=== PATIENT | male | born 1955 ===

== ENCOUNTER 2017-01-23 09:58 | Inpatient (IN) ==
[~2017-01-23 09:58] MED LIST: HEPARIN 5,000 UNIT/1 ML VIAL IV ONE; LIDOCAINE 1% 20 ML VIAL MISC INJ ONE; MEPERIDINE 25 MG/1 ML VIAL IV ONE; MIDAZOLAM 2 MG/2 ML VIAL IV ONE
--- NOTE | 2017-01-23 10:25 | Cardiology History & Physical ---
Assessment and Plan - Time spent with patient Time spent with patient: Greater than 30 minutes (1) Chest pain in adult Status: Acute Assessment and plan: With the patient having anterior chest pain suggestive of an MD, IVCD making it nondiagnostic for STEMI, and his known coronary disease, we must presume that he is having a STEMI and needs an emergent heart cath. The risk and benefits were discussed with the patient. He agrees to proceed. Left heart cath and possible PTCA or stent were discussed with the patient. The risk of the procedure include but are not limited to a small risk of injury to the vessel, abnormal heart rhythm, stroke, heart attack, need for emergent surgery, contrast reaction, restenosis, or . The patient voices understanding, agrees with the plan, and desires to proceed with the heart catheterization. I discussed with the patient the benefits of stopping tobacco/nicotine, the problems with continuing to use it, and options of treatment. The patient is considering this option. Check lipid profile post cath and treat per guidelines--try to use a statin We will keep him on low-dose beta-carrie at all possible Current Visit: Yes (2) IVCD (intraventricular conduction defect) Status: Acute Current Visit: Yes (3) Smoker Status: Acute Current Visit: Yes (4) Alcohol use Status: Acute Current Visit: Yes History of Present Illness Chief complaint: "I felt like something was sitting on my chest" History of present illness: Mr. Kendrick is a 61 year old male PCP:? [employer] Officer: Dr. Yfn Arnold In about 2009 patient presented with chest pain and had a ischemic EKG changes, so there was no IVCD or bundle-branch block at that time. He underwent heart cath and stenting by Dr. Arnold. He had a stent of his ostium of the right coronary artery in his mid right stent, then did fairly well. He does remain on aspirin and Plavix but no other medications. This morning, is eating some breakfast. He ate some hashbrowns and onion. He began having some nausea. With the nausea, then began to feel like "something was sitting on my chest". An EKG was obtained. It showed left bundle branch block. This presumably is new. He was sent to [facility] to evaluate for the possibility of an acute MD. He was brought to the catheterization lab directly. No orthopnea, PND, edema, palpitations, syncope, cough, wheezing, or phlegm. No bleeding in the pt's bowels, urine, or coughing up blood. No planned surgery for the next year. No contraindication to anticoagulation for a year. Home Medications Medication Instructions Recorded Confirmed Type Aspirin [Aspirin EC] 81 mg PO DAILY 01/23/17 01/23/17 History Allergies Allergy/AdvReac Type Severity Reaction Status Date / Time No Known Allergies Allergy Unverified 01/23/17 10:09 12 point system: reviewed and no additional remarkable complaints except as stated (A 12 point review of systems is negative except for as mentioned in HPI. ) Medical,Surgical,& Family Hx - Family History Family History: Reports;: Family Heart Disease - Social History Smoking Status: Current every day smoker Frequency of Alcohol Use: Frequently (Per the family, he drinks about 1/5 of liquor or slightly more per weekend. Most all of this is consumed in the weekend.) Type of Drug Use: None Functional capacity: independent ambulation Cardiology Physical Exam - Constitutional Exam: HEENT: Pupils equal, reactive to light and accommodation Neck: NoJVD or bruit Lungs clear to auscultation Heart: Regular rhythm rate with normal S1 and S2. Apical S4 Abdomen: No hepatosplenomegaly Spine/extremities: No clubbing, cyanosis, or edema Neuro: Nonfocal Psych: No depression or anxiety Bilateral femoral pulses were 4+. Foot pulses were 2-3+. Result/EKG - Labs CBC & BMP: 01/23/17 12:03 01/23/17 12:03 - EKG EKG results: interpreted by me
--- NOTE | 2017-01-23 10:26 | History and Physical Update ---
Sedation H&P Update - History and Physical H&P was reviewed, the patient examined and there: are no changes in the patients condition since last H&P was completed. - Dictation Physical: refer to H&P completed by admitting physician - Physical Exam Mental Status: alert and oriented Heart: regular rate and rhythm Lung: clear to auscultation Abdomen: within normal limits Vitals: within normal limits - Sedation Plan for Sedation: minimal Patient Consent: Procedure disscussed with patient and patinet has consented., Risks and benefits were discussed with patient,including infection,, bleeding, injury to surrounding structures, seizure, temporary nerve, Patient understands and accepts potential risks/benefits and agrees to, proceed. ASA Class: IV Airway Assessment: Class II: Soft palate, uvula, fauces visible
--- NOTE | 2017-01-23 10:28 | Operative Note ---
Date of procedure: 01/23/17 Procedure Preformed: Left heart cath--emergently, chest pain consistent with an PR and left bundle branch block which is thought to be new Coronary angiography Left ventriculography Attempted crossing of the occluded right coronary artery to do PTCA/stent- unsuccessful-thought to be a chronic total occlusion Angiogram of the right femoral artery Angio-Seal of the right femoral artery-successful Surgeon / Physician: Case Bustillo News Copy Editor: Payton Sauceda Post-op diagnosis: same (Anterior chest pain, "like something is sitting on my chest" associated with nausea in the setting of someone who has known coronary disease, prior coronary stenting of the right coronary artery, and has left bundle branch block which is assumed to be new [no prior EKG is available, when he came in 2009 he had EKG changes suggestive of ischemia, which would suggest he did not have left bundle branch block pattern at that time]) Findings: Impression: Totally occluded ostium of the right coronary-angiographically it appears it is occluded ostially and in the midportion-with BRIAN grade III collaterals, suggesting this is an old occlusion-- Mild luminal irregularities in the left coronary artery-no significant disease in the left system Mild global left systolic dysfunction, LVEF 45-55% Mild elevation of LVEDP, 16 mmHg Attempted crossing of the total occlusion of the right coronary artery-in case he was a acute total nipqhjvbj-rspavyqqjiaj-Q believe this is an old total occlusion Angiogram right femoral artery Angio-Seal right femoral artery-successful Plan/recommendations: The patient will have risk factors optimized. The patient will be on antiplatelet medications to include aspirin indefinitely and Plavix . my suspicion is this is is this is not a STEMI or even a non-STEMI. It is my assessment that the nausea and then anterior chest pressure which occurred after eating his hashbrowns was in fact not an acute PR but may have been GI related. We will see with enzymes show. Even if it is his acute occlusion of the right coronary artery it could not be crossed. We treated medically. Meanwhile, he does still smoke. I discussed with about stopping smoking. I will make sure he is on good medication for his coronary disease. There is also question of him drinking 1/5 or more of liquor per weekend which I will advise him on no more than 2 drinks in 24 hours. Follow-up will be scheduled. Addenda: I saw the patient post-cath. the groin puncture site and distal pulse are stable. vital signs are stable and the patient will be observed closely overnight. Specimens: none sent Estimated blood loss: minimal Condition: stable Anesthesia: local, conscious sedation Disposition: floor
[2017-01-23] MEDS ORDERED: MAGNESIUM SULF RIDER 4 GM in PREMIX 1 EACH IV PRN (10:38)
[2017-01-23] MEDS ORDERED: MAGNESIUM SULF RIDER 2 GM in PREMIX 1 EACH IV PRN (10:38)
[2017-01-23] MEDS ORDERED: ACETAMINOPHEN 325 MG TABLET PO PRN (10:38)
--- NOTE | 2017-01-23 10:38 | Cardiology Operative Report ---
Date of Procedure:: 01/23/17 Post-op diagnosis: same (Anterior chest pain, "like something is sitting on my chest" associated with nausea in the setting of someone who has known coronary disease, prior coronary stenting of the right coronary artery, and has left bundle branch block which is assumed to be new [no prior EKG is available, when he came in 2009 he had EKG changes suggestive of ischemia, which would suggest he did not have left bundle branch block pattern at that time]) Procedure: Surgeon / Physician: Case Bustillo Starter Cup Powder Mixer: Payton Sauceda Post-op diagnosis: same (Anterior chest pain, "like something is sitting on my chest" associated with nausea in the setting of someone who has known coronary disease, prior coronary stenting of the right coronary artery, and has left bundle branch block which is assumed to be new [no prior EKG is available, when he came in 2009 he had EKG changes suggestive of ischemia, which would suggest he did not have left bundle branch block pattern at that time]) procedure: The patient was prepped and draped in usual manner. Entered the right femoral artery via the Seldinger technique. I used a sheath and then used a JL4 and engaged left coronary. Multiple views were taken. I then exchanged for a JR4. Multiple views of the right coronary were taken. I then exchanged for an angled pigtail. I crossed the valve. Left ventricular end-diastolic pressures measured. Left ventriculography was done. Left ventricle pullback was done. The catheters were then removed from the patient. Please see the cath data sheets for the details of catheters used. Complications: None Hemodynamic data: LVEDP was 16 mmHg. Angiographic data: The left main coronary was large and had minimal luminal irregularities. The left anterior descending artery was large and had minimal luminal irregularities. The left circumflex system was moderate to large and had minimal luminal irregularities The right coronary artery was large in size, dominant vessel with the PDA. There is clearly occluded ostium. There were BRIAN grade III collaterals from the left coronary to the distal right coronary. He would only feel back to the midportion of vessel, suggesting this length of occlusion was several centimeters. It has appearance of an old occlusion. ASENCIO left ventriculography revealed normal global/regional left ventricular systolic function. Overall ejection fraction was at least 45-55%. There is no significant mitral regurgitation. Angiogram of the right femoral artery revealed the puncture site to be in a large vessel, above the bifurcation. It was suitable for Angio-Seal. Impression: Totally occluded ostium of the right coronary-angiographically it appears it is occluded ostially and in the midportion-with BRIAN grade III collaterals, suggesting this is an old occlusion-- Mild luminal irregularities in the left coronary artery-no significant disease in the left system Mild global left systolic dysfunction, LVEF 45-55% Mild elevation of LVEDP, 16 mmHg Attempted crossing of the total occlusion of the right coronary artery-in case he was a acute total tfxpbdver-ldgjmeqlufgn-N believe this is an old total occlusion Angiogram right femoral artery Angio-Seal right femoral artery-successful Plan/recommendations: The patient will have risk factors optimized. The patient will be on antiplatelet medications to include aspirin indefinitely and Plavix . my suspicion is this is is this is not a STEMI or even a non-STEMI. It is my assessment that the nausea and then anterior chest pressure which occurred after eating his hashbrowns was in fact not an acute WA but may have been GI related. We will see with enzymes show. Even if it is his acute occlusion of the right coronary artery it could not be crossed. We treated medically. Meanwhile, he does still smoke. I discussed with about stopping smoking. I will make sure he is on good medication for his coronary disease. There is also question of him drinking 1/5 or more of liquor per weekend which I will advise him on no more than 2 drinks in 24 hours. Follow-up will be scheduled. Addenda: I saw the patient post-cath. the groin puncture site and distal pulse are stable. vital signs are stable and the patient will be observed closely overnight. Specimens: none sent Estimated blood loss: minimal Condition: stable Anesthesia: local, conscious sedation Disposition: floor Additional CC's: Aydin Arnold Anesthesia: local, minimal conscious sedation Surgeon / Physician: Case Bustillo Starter Cup Powder Mixer: other Estimated blood loss: minimal Specimens: none sent Condition: stable Disposition: floor
[2017-01-23] MEDS ORDERED: DEXTROSE 5% NACL 0.9% 1,000 ML IV SCH (11:00)
[2017-01-23] MEDS ORDERED: CARVEDILOL 3.125 MG TABLET PO SCH (11:00)
[2017-01-23] MEDS ORDERED: ONDANSETRON 4 MG/2 ML VIAL IV PRN (11:31)
[2017-01-23 12:15] LABS: Basophils % 0.3 % (0.0-0.8); Eosinophils % 0.1 % (0.00-10.9); Hematocrit 44.6 VOL% (42.0-52.0); Hemoglobin 14.6 GM/DL (14.0-18.0); Immature Granulocytes % 0.4 %; Immature Granulocytes Absolute 0.05 #; Lymphocytes # 1.3 10*3/uL (1.4-4.0); Lymphocytes % 9.1 % (21.2-54.2); Mean Corpuscular HGB Conc 32.7 GM/DL (32-36); Mean Corpuscular Hemoglobin 29 PG (27-34); Mean Corpuscular Volume 88.8 FL (87-102); Mean Platelet Volume 10.5 FL (9.6-12.0); Monocytes # 0.6 10*3/uL (0.11-0.8); Neutrophils % 86.1 % (38.7-73.9); Platelet Count 189 T/CUMM (130-400); Red Blood Count 5.02 MC/CUMM (3.8-5.5); Red Cell Distribution Width 14.6 % (9.3-17.3); White Blood Count 13.9 T/CUMM (4-12)
[2017-01-23] MEDS: ASPIRIN CHEW 81 MG TABLET PO SCH (12:37)
--- NOTE | 2017-01-23 12:41 | EKG Report ---
Stationary ECG Study [facility] Test Date: 01/23/2017 8:03:08 AM Pat Name: ANDREA HOUGH Department: Room: 280 Gender: M Overnight Houseperson: : 1955 Requested by: Case Del Castillo Order Number: [id number] Reading MD: CASE DEL CASTILLO Intervals [place] Rate: 61 P: 76 SC: 163 QRS: 50 QRSD: 154 T: 259 QT: 461 QTc: 464 Interpretive Statements SINUS RHYTHM WITH SINUS ARRHYTHMIA INTRAVENTRICULAR CONDUCTION DELAY INTERPRETATION BASED ON A DEFAULT AGE OF 40 YEARS HEART ALERT DONE AT [facility]. CORRECT TIME 09:03, BROUGHT TO [facility] Electronically Signed On 01-24-17 14:56:55 CDT by CASE DEL CASTILLO [email or web address]
[2017-01-23 12:53] LABS: Albumin 3.7 G/DL (3.4-5.0); Bilirubin,Total 1.1 MG/DL (0.2-1.0); Osmolality,Calculated 276.7 MOS/KG (273-304); Potassium 4.3 MMOL/L (3.5-5.1); Risk Ratio 3.61; Total Protein 6.7 G/DL (6.4-8.3)
[2017-01-23 13:08] LABS: Troponin I Only 0.036 NG/ML (0.00-0.045)
--- NOTE | 2017-01-23 14:11 | EKG Report ---
Stationary ECG Study [facility] Test Date: 01/23/2017 2:11:28 PM Pat Name: ANDREA HOUGH Department: Room: 280 Gender: M Substation Operator Conversion: SYLVIA : 1955 Requested by: Case Del Castillo Order Number: [id number] Reading MD: CASE DEL CASTILLO Intervals [place] Rate: 74 P: 71 GA: 168 QRS: 107 QRSD: 152 T: -61 QT: 423 QTc: 451 Interpretive Statements SINUS RHYTHM WITH OCCASIONAL VENTRICULAR PREMATURE COMPLEXES MARKED RIGHT AXIS DEVIATION INTRAVENTRICULAR CONDUCTION DELAY Electronically Signed On 01-24-17 14:57:23 CDT by CASE DEL CASTILLO [id number]
[2017-01-23] MEDS: ALUMINUM/MAGNES/SIMETH MAX STR 30 ML UDCUP PO PRN ×2 (15:41→21:07)
[2017-01-23] MEDS: ROSUVASTATIN 10 MG TABLET PO SCH ×2 (16:41→21:06)
[2017-01-23] MEDS: CARVEDILOL 6.25 MG TABLET PO SCH ×2 (16:41→21:06)
[2017-01-23 20:40] LABS: CKMB % 6.7 %
[2017-01-23 20:58] LABS: Troponin I Only 1.14 NG/ML (0.00-0.045)
[2017-01-24 05:26] LABS: Basophils % 0.3 % (0.0-0.8); Eosinophils % 0.4 % (0.00-10.9); Hematocrit 42.1 VOL% (42.0-52.0); Hemoglobin 13.8 GM/DL (14.0-18.0); Immature Granulocytes % 0.4 %; Immature Granulocytes Absolute 0.04 #; Lymphocytes # 2.2 10*3/uL (1.4-4.0); Lymphocytes % 24.1 % (21.2-54.2); Mean Corpuscular HGB Conc 32.8 GM/DL (32-36); Mean Corpuscular Hemoglobin 29 PG (27-34); Mean Corpuscular Volume 87.9 FL (87-102); Mean Platelet Volume 10.6 FL (9.6-12.0); Monocytes # 0.9 10*3/uL (0.11-0.8); Monocytes % 9.5 % (1.7-12.7); Neutrophils % 65.3 % (38.7-73.9); Platelet Count 233 T/CUMM (130-400); Red Blood Count 4.79 MC/CUMM (3.8-5.5); Red Cell Distribution Width 14.5 % (9.3-17.3); White Blood Count 9.3 T/CUMM (4-12)
[2017-01-24 06:08] LABS: CKMB % 6.9 %
[2017-01-24 06:09] LABS: Albumin 3.3 G/DL (3.4-5.0); Calcium 8.7 MG/DL (8.5-10.1); Osmolality,Calculated 276.4 MOS/KG (273-304); Total Protein 6.3 G/DL (6.4-8.3)
[2017-01-24 06:35] LABS: Troponin I Only 9.28 NG/ML (0.00-0.045)
--- NOTE | 2017-01-24 07:19 | XRay Report ---
XR chest 2V Indication: Shortness of breath. Comparison: None. Technique: PA and lateral chest x-ray was performed. Findings: The heart size appears within normal limits. The mediastinal contour and hilar structures demonstrate no significant abnormalities. Lungs are clear. Bones and soft tissues demonstrate no evidence of acute pathology. Impression: 1. No active cardiopulmonary disease. 01/24/2017 7:16 AM PROCEDURE INTERPRETED AT [facility] DEPARTMENT OF RADIOLOGY Final Report Signed by: Dr. Bryson Amaro
--- NOTE | 2017-01-24 08:02 | EKG Report ---
Stationary ECG Study [facility] Test Date: 01/24/2017 8:02:51 AM Pat Name: ANDREA HOUGH Department: Room: 280 Gender: M Skein Dyer: SYLVIA : 1955 Requested by: Case Del Castillo Order Number: [id number] Reading MD: CASE DEL CASTILLO Intervals [place] Rate: 63 P: 64 CA: 163 QRS: 8 QRSD: 157 T: 221 QT: 434 QTc: 441 Interpretive Statements SINUS RHYTHM LEFT BUNDLE BRANCH BLOCK Electronically Signed On 01-24-17 15:00:41 CDT by CASE DEL CASTILLO [id number]
[2017-01-24] MEDS: ASPIRIN CHEW 81 MG TABLET PO SCH (08:52)
[2017-01-24] MEDS: CARVEDILOL 6.25 MG TABLET PO SCH (08:53)
[2017-01-24] MEDS ORDERED: CARVEDILOL 6.25 MG TABLET PO ONE (09:53)
[2017-01-24] MEDS ORDERED: CLOPIDOGREL 300 MG TABLET PO ONE (10:00)
[2017-01-24 10:55] LABS: CKMB % 6.1 %
[2017-01-24 10:56] LABS: Troponin I Only 12.4 NG/ML (0.00-0.045)
[2017-01-24] MEDS: CAPTOPRIL 25 MG TABLET PO SCH ×2 (16:13→21:12)
[2017-01-24 19:05] LABS: CKMB % 4.7 %
[2017-01-24 19:08] LABS: Troponin I Only 12.3 NG/ML (0.00-0.045)
--- NOTE | 2017-01-24 20:13 | Cardiology Progress Note ---
I, Veronique Carbajal RN, am scribing for, and in the presence of, Case Bustillo MD 20:12. Assessment and Plan (1) Chest pain in adult Status: Acute Assessment and plan: Initial assessment and plan 01/23/2017: With the patient having anterior chest pain suggestive of an AL, IVCD making it nondiagnostic for STEMI, and his known coronary disease, we must presume that he is having a STEMI and needs an emergent heart cath. The risk and benefits were discussed with the patient. He agrees to proceed. Left heart cath and possible PTCA or stent were discussed with the patient. The risk of the procedure include but are not limited to a small risk of injury to the vessel, abnormal heart rhythm, stroke, heart attack, need for emergent surgery, contrast reaction, restenosis, or . The patient voices understanding, agrees with the plan, and desires to proceed with the heart catheterization. I discussed with the patient the benefits of stopping tobacco/nicotine, the problems with continuing to use it, and options of treatment. The patient is considering this option. Check lipid profile post cath and treat per guidelines--try to use a statin We will keep him on low-dose beta-carrie at all possible 01/24/2017--assessment/plan: Positive cardiac enzymes, the patient had a non- STEMI. Will load with 600 mg of Plavix. Start 75 mg of Plavix per day. Will increase the carvedilol to 6.25 mg extra and then 12.5 mg p.o. twice daily or thereabouts. For high blood pressure will I will add captopril 25 mg 3 -4 x daily. I discussed with the patient. To me, the non-STEMI could be related to closure of the right coronary artery could have been a transient closure of her artery and the left it was opened by the time from the heart cath. he could have been spasm or thrombosis of the left system. The above was discussed with the patient. I discussed with the patient the benefits of stopping tobacco/ nicotine, the problems with continuing to use it, and options of treatment. The patient is considering this option. I encouraged him to not drink more than 2 servings of alcohol drink, regular size, within a 24-hour. He voiced understanding and agrees. Current Visit: Yes (2) Alcohol use Status: Acute Current Visit: Yes (3) IVCD (intraventricular conduction defect) Status: Acute Current Visit: Yes (4) Smoker Status: Acute Current Visit: Yes (5) Non-STEMI (non-ST elevated myocardial infarction) Status: Acute Current Visit: Yes Cardiology - PN: Subj Interval history: Retail Greeter: Dr. Arnold Mr. Kendrick presented yesterday with anterior chest pain suggestive of an AL and was taken emergently to the [facility] with the following findings and recommendations: Totally occluded ostium of the right coronary-angiographically it appears it is occluded ostially and in the midportion-with BRIAN grade III collaterals, suggesting this is an old occlusion-- Mild luminal irregularities in the left coronary artery-no significant disease in the left system Mild global left systolic dysfunction, LVEF 45-55% Mild elevation of LVEDP, 16 mmHg Attempted crossing of the total occlusion of the right coronary artery-in case he was a acute total eswwuogaj-lvvhzobdurkc-F believe this is an old total occlusion Angiogram right femoral artery Angio-Seal right femoral artery-successful Plan/recommendations: The patient will have risk factors optimized. The patient will be on antiplatelet medications to include aspirin indefinitely and Plavix . my suspicion is this is is this is not a STEMI or even a non-STEMI. It is my assessment that the nausea and then anterior chest pressure which occurred after eating his hashbrowns was in fact not an acute AL but may have been GI related. We will see with enzymes show. Even if it is his acute occlusion of the right coronary artery it could not be crossed. We treated medically. Meanwhile, he does still smoke. I discussed with about stopping smoking. I will make sure he is on good medication for his coronary disease. There is also question of him drinking 1/5 or more of liquor per weekend which I will advise him on no more than 2 drinks in 24 hours. Follow-up will be scheduled. Today Mr. Kendrick is resting in bed in no acute distress. He denies any chest pain, shortness of breath, palpitations, or dizziness. Right groin is slightly tender but no pain at groin site or down leg. It is without evidence of hematoma or bleeding. His blood pressures have been elevated. We have started Capoten 25 mg p.o. 3 times daily and increased carvedilol to 12.5 mg p.o. twice daily. His troponin yesterday afternoon was 1.140, this morning it has been 9.280 and 12.4. He has been loaded with Plavix 600 mg 1 dose today and will start Plavix 75 mg p.o. daily tomorrow. Exam (Progress Note) - Constitutional Vitals: Period Temp Pulse Resp BP Sys/Navarrete Pulse Ox Last 24 Hr 97.2 F-98.8 F 66-78 14-20 143-168/82-101 97-100 General appearance: normal weight, no acute distress - Head Head exam: Absent: abrasion, hematoma - Eye Eye exam: Absent: periorbital swelling, laceration to eyelids - Respiratory Respiratory exam: Present: clear to auscultation bilaterally. Absent: accessory muscle use, chest wall tenderness - Cardiovascular Cardiovascular exam: Present: regular rate and rhythm. Absent: rubs - GI/Abdominal GI/Abdominal exam: Present: normal bowel sounds, soft. Absent: distended, tenderness - Extremities Exam Extremities exam: Present: other (Right groin without evidence of bleeding or hematoma). Absent: edema - Neurological Exam Neurological exam: Present: alert, oriented X3 - Psychiatric Psychiatric exam: Present: normal affect, normal mood - Skin Skin exam: Present: warm, dry Result/EKG - Labs CBC & BMP: 01/24/17 04:44 01/24/17 04:44 Lab Results: I have reviewed the past 24 hour labs Labs: Laboratory Results - last 24 hr 01/23/17 01/23/17 01/23/17 12:03 12:03 12:03 WBC 13.9 H RBC 5.02 Hgb 14.6 Hct 44.6 MCV 88.8 MCH 29 MCHC 32.7 RDW 14.6 Plt Count 189 MPV 10.5 Neut % (Auto) 86.1 H Lymph % (Auto) 9.1 L [place] % (Auto) 4.0 Eos % (Auto) 0.1 Baso % (Auto) 0.3 Neut # (Auto) 12.0 H Lymph # (Auto) 1.3 L [place] # (Auto) 0.6 Eos # (Auto) 0.0 Baso # (Auto) 0.0 Immature Gran % 0.4 Nucleated RBC % 0.0 Immature Gran # 0.05 Nucleated RBCs # 0.00 Sodium 138 Potassium 4.3 Chloride 107 Carbon Dioxide 24 Anion Gap 11.3 BUN 15 Creatinine 1.00 GFR Calculation 96 BUN/Creatinine Ratio 15.00 Glucose 112 H Calculated Osmolality 276.7 Calcium 9.0 Total Bilirubin 1.10 H AST 15 ALT 20 Alkaline Phosphatase 74 Total Creatine Kinase 110 CK-MB (CK-2) 1.3 CK and CKMB Interp Troponin I 0.036 Total Protein 6.7 Albumin 3.7 Globulin 3.0 Albumin/Globulin Ratio 1.2 Triglycerides 100 Cholesterol 166 LDL Cholesterol 108.0 VLDL Cholesterol 20.0 HDL Cholesterol 46 Heart Disease Risk Ratio 3.61 01/23/17 01/24/17 01/24/17 19:11 04:44 04:44 WBC 9.3 D RBC 4.79 Hgb 13.8 L Hct 42.1 MCV 87.9 MCH 29 MCHC 32.8 RDW 14.5 Plt Count 233 D MPV 10.6 Neut % (Auto) 65.3 Lymph % (Auto) 24.1 [place] % (Auto) 9.5 Eos % (Auto) 0.4 Baso % (Auto) 0.3 Neut # (Auto) 6.0 Lymph # (Auto) 2.2 [place] # (Auto) 0.9 H Eos # (Auto) 0.0 Baso # (Auto) 0.0 Immature Gran % 0.4 Nucleated RBC % 0.0 Immature Gran # 0.04 Nucleated RBCs # 0.00 Sodium Potassium Chloride Carbon Dioxide Anion Gap BUN Creatinine GFR Calculation BUN/Creatinine Ratio Glucose Calculated Osmolality Calcium Total Bilirubin AST ALT Alkaline Phosphatase Total Creatine Kinase 209 D 429 H D CK-MB (CK-2) 14.1 H D 29.7 H D CK and CKMB Interp 6.7 6.9 Troponin I 1.140 H D 9.280 H D Total Protein Albumin Globulin Albumin/Globulin Ratio Triglycerides Cholesterol LDL Cholesterol VLDL Cholesterol HDL Cholesterol Heart Disease Risk Ratio 01/24/17 01/24/17 04:44 10:11 WBC RBC Hgb Hct MCV MCH MCHC RDW Plt Count MPV Neut % (Auto) Lymph % (Auto) [place] % (Auto) Eos % (Auto) Baso % (Auto) Neut # (Auto) Lymph # (Auto) [place] # (Auto) Eos # (Auto) Baso # (Auto) Immature Gran % Nucleated RBC % Immature Gran # Nucleated RBCs # Sodium 140 Potassium 4.0 Chloride 108 H Carbon Dioxide 24 Anion Gap 12.0 BUN 8 Creatinine 0.80 GFR Calculation 115 BUN/Creatinine Ratio 10.00 Glucose 97 Calculated Osmolality 276.4 Calcium 8.7 Total Bilirubin 1.00 AST 66 H ALT 21 Alkaline Phosphatase 65 Total Creatine Kinase 446 H CK-MB (CK-2) 27.2 H CK and CKMB Interp 6.1 Troponin I 12.400 H D Total Protein 6.3 L Albumin 3.3 L Globulin 3.0 Albumin/Globulin Ratio 1.1 Triglycerides Cholesterol LDL Cholesterol VLDL Cholesterol HDL Cholesterol Heart Disease Risk Ratio - EKG EKG results: interpreted by me EKG shows: sinus rhythm Quality Measures - VTE Contraindication to Pharmacological VTE Prophylaxis: High Risk of Bleeding IKeny Dale, MD, personally performed the services described in this documentation, ascribed by Veronique Carbajal RN in my presence, and it is both accurate and complete .
[2017-01-24] MEDS: ROSUVASTATIN 10 MG TABLET PO SCH (21:11)
[2017-01-24] MEDS: CARVEDILOL 12.5 MG TABLET PO SCH (21:12)
[2017-01-25 06:38] LABS: Basophils % 0.4 % (0.0-0.8); Eosinophils % 0.4 % (0.00-10.9); Hematocrit 41.6 VOL% (42.0-52.0); Hemoglobin 13.7 GM/DL (14.0-18.0); Immature Granulocytes % 0.2 %; Immature Granulocytes Absolute 0.02 #; Lymphocytes # 1.9 10*3/uL (1.4-4.0); Lymphocytes % 20.6 % (21.2-54.2); Mean Corpuscular HGB Conc 32.9 GM/DL (32-36); Mean Corpuscular Hemoglobin 29 PG (27-34); Mean Corpuscular Volume 87.8 FL (87-102); Mean Platelet Volume 10.4 FL (9.6-12.0); Monocytes # 1.1 10*3/uL (0.11-0.8); Monocytes % 11.9 % (1.7-12.7); Neutrophils # 6.2 10*3/uL (1.4-7.4); Neutrophils % 66.5 % (38.7-73.9); Platelet Count 235 T/CUMM (130-400); Red Blood Count 4.74 MC/CUMM (3.8-5.5); Red Cell Distribution Width 14.6 % (9.3-17.3); White Blood Count 9.3 T/CUMM (4-12)
[2017-01-25 07:05] LABS: Calcium 8.5 MG/DL (8.5-10.1); Magnesium 2.2 MG/DL (1.8-2.4); Osmolality,Calculated 277.4 MOS/KG (273-304)
[2017-01-25 07:11] LABS: CKMB % 3.3 %
[2017-01-25 07:14] LABS: Troponin I Only 9.98 NG/ML (0.00-0.045)
--- NOTE | 2017-01-25 07:52 | EKG Report ---
Stationary ECG Study [facility] Test Date: 01/25/2017 7:51:53 AM Pat Name: ANDREA HOUGH Department: Room: 280 Gender: M Investigator Welfare: [place] : 1955 Requested by: Case Del Castillo Order Number: [id number] Reading MD: CASE DEL CASTILLO Intervals [place] Rate: 65 P: 61 VT: 129 QRS: 89 QRSD: 155 T: 239 QT: 426 QTc: 437 Interpretive Statements SINUS RHYTHM WITH OCCASIONAL VENTRICULAR PREMATURE COMPLEXES INTRAVENTRICULAR CONDUCTION DELAY Electronically Signed On 01-25-17 13:12:22 CDT by CASE DEL CASTILLO [email or web address]
[2017-01-25] MEDS ORDERED: CLOPIDOGREL 75 MG TABLET PO SCH (09:00)
[2017-01-25] MEDS: CARVEDILOL 12.5 MG TABLET PO SCH (09:04)
[2017-01-25] MEDS: ASPIRIN CHEW 81 MG TABLET PO SCH (09:04)
[2017-01-25] MEDS: CAPTOPRIL 25 MG TABLET PO SCH (09:07)
[2017-01-25 13:02] VITALS: BP 151/83
--- NOTE | 2017-01-25 13:30 | Discharge Summary ---
I, Mel Castañeda RN, am scribing for, and in the presence of, Farheen Pepper NP 13:29. Hospital Course - Hospital Course Hospital Course: PRIMARY CHOKER SETTER: DR. HARPER VAZQUEZ Mr. Kendrick is a 61-year-old black male with a past medical history of coronary artery disease with previous coronary stenting per Dr. Vazquez. In 2009, he presented with chest pain and had ischemic EKG changes without IVCD or bundle branch block at that time. He has done fairly well from a cardiac standpoint since that time. On January 23, 2017, he was at work and was eating breakfast when he suddenly experienced acute onset of nausea accompanied by chest pressure. He describes this as "something was sitting on my chest". Mr. Kendrick works at [employer], and EKG was immediately obtained there. Twelve-lead revealed a left bundle branch block, and this was presumed to be new. EMS was called, and patient was transported to [facility], bypassed the emergency room, and was taken urgently to cardiac catheterization lab as it was presumed he was to have an acute NE. Cardiac cath was performed by Dr. Case Bustillo with the following found: Impression: Totally occluded ostium of the right coronary-angiographically it appears it is occluded ostially and in the midportion-with BRIAN grade III collaterals, suggesting this is an old occlusion-- Mild luminal irregularities in the left coronary artery-no significant disease in the left system Mild global left systolic dysfunction, LVEF 45-55% Mild elevation of LVEDP, 16 mmHg Attempted crossing of the total occlusion of the right coronary artery-in case he was a acute total uepgtbzjg-onoidbltryka-L believe this is an old total occlusion Angiogram right femoral artery Angio-Seal right femoral artery-successful Plan/recommendations: The patient will have risk factors optimized. The patient will be on antiplatelet medications to include aspirin indefinitely and Plavix . my suspicion is this is is this is not a STEMI or even a non-STEMI. It is my assessment that the nausea and then anterior chest pressure which occurred after eating his hashbrowns was in fact not an acute NE but may have been GI related. We will see with enzymes show. Even if it is his acute occlusion of the right coronary artery, it could not be crossed. We treated medically. Meanwhile, he does still smoke. I discussed with about stopping smoking. I will make sure he is on good medication for his coronary disease. There is also question of him drinking 1/5 or more of liquor per weekend which I will advise him on no more than 2 drinks in 24 hours. Follow-up will be scheduled. He was admitted to telemetry overnight for monitoring. Serial cardiac biomarkers were checked. Initial troponin on 01/23/17 was 0.036, and on 01/24/17 , his troponin became positive and peaked at 12.40 with CK-MB 27.2, and CPK 446. Patient was found to have had a non-STEMI, and was felt to be possibly related to occlusion of the RCA, transient closure of an artery on the left which was opened by the time Was performed, or could have been spasm or thrombosis in the left system. Patient was loaded with Plavix 600 mg by mouth on 01/24, and on 01/25, Plavix 75 mg by mouth daily was started. Low-dose beta- carrie was gradually increased, and patient had good response. DEX inhibitor ( captopril) and statin (rosuvastatin) also added to medication regimen. Baby aspirin continued. EKG has been monitored, and he has remained in a sinus rhythm with IVCD and occasional PVCs noted. There has been no overt ectopy or sustained dysrhythmia. Patient has not experienced further chest pain, shortness of breath, nausea, palpitation, presyncope, or other anginal complaint. He has had no orthopnea, PND, or LE edema. Having felt he has reached maximum hospital benefit, he is eligible for discharge. Patient will be discharged home today. Patient will be given a follow-up appointment in 1-2 weeks at [facility] clinic with Dr. Vazquez. He will need an EKG, CBC, BMP, and magnesium level at time of visit. Discharge medications will include: 1. Plavix 75 mg by mouth daily 2. Carvedilol 12.5 mg by mouth twice daily 3. Captopril 25 mg by mouth 3 times daily 4. Aspirin 81 mg by mouth daily 5. Rosuvastatin 5 mg by mouth at bedtime He will be given prescriptions for these medications. - Time spent with patient Time with patient DS: Greater than 30 minutes (due to assessment, planning, documentation, medication reconciliation) Diagnosis - Discharge Diagnosis (1) Non-STEMI (non-ST elevated myocardial infarction) Status: Resolved (2) IVCD (intraventricular conduction defect) Status: Chronic (3) Smoker Status: Chronic (4) Alcohol use Status: Chronic (5) Hypertension Status: Chronic (6) Dyslipidemia Status: Chronic Specialty Discharge - Follow Up or Referrals Follow up with: Aydin Vazquez MD [Physician] - 1 Week (Follow up with Dr. Vazquez at [facility] clinic in 2-4 weeks. Will need EKG, CBC, BMP, Mg+) Discharge Plan - Discharge Data Disposition: Disch To Home/Self Care Condition at Discharge: Stable Discharge Diet: heart healthy, low salt diet Activity: other (No straining or lifting objects over 10 pounds 1 week) Hygiene: may shower, other (No tub bath 1 week.) Weight Bearing at Discharge: weight bear as tolerated Driving: other (No driving for 1 week) Contact your physician if you experience:: fever over 101, Difficulty voiding, Redness or swelling, Nausea/Vomiting, Shortness of breath, Bleeding, pain uncontrolled by pain medications - Discharge Medications New Captopril [Capoten] 25 mg PO TID #90 tablet Carvedilol [Coreg] 12.5 mg PO BID #60 tablet Clopidogrel [Plavix] 75 mg PO DAILY #30 tablet Rosuvastatin [Crestor] 5 mg PO BEDTIME #30 tablet Aspirin Chew Tab 81 mg PO DAILY #30 tablet Discontinued Aspirin [Aspirin EC] 81 mg PO DAILY - Follow Up or Referral - Forms/Instructions Exam - Constitutional Vitals: Period Temp Pulse Resp BP Sys/Navarrete Pulse Ox Last 24 Hr 96.8 F-98.4 F 63-71 18-20 137-175/68-88 96-99 Exam: HEENT: Pupils equal, reactive to light and accommodation. Neck: NoJVD, bruit, mass, or tenderness. Trachea is midline. Lungs clear to auscultation. No wheeze, stridor, rhonchi Heart: Regular rhythm rate with normal S1 and S2. Apical S4. No irregular rhythm, bradycardia, tachycardia. Abdomen: No hepatosplenomegaly Spine/extremities: No clubbing, cyanosis, calf tenderness, or edema. Skin is warm and dry. Neuro: Oriented. Grossly intact without tremor. Psych: No depression or anxiety Bilateral femoral pulses are 4+. DP and PT pulse are 2-3+ bilaterally. RFA cath site - groin is soft without hematoma or bruit appreciated. Discharge Results Labs on day of discharge: Labs from last 24 hours 01/25/17 01/25/17 01/25/17 05:33 05:33 05:33 WBC 9.3 RBC 4.74 Hgb 13.7 L Hct 41.6 L MCV 87.8 MCH 29 MCHC 32.9 RDW 14.6 Plt Count 235 MPV 10.4 Neut % (Auto) 66.5 Lymph % (Auto) 20.6 L [place] % (Auto) 11.9 Eos % (Auto) 0.4 Baso % (Auto) 0.4 Neut # (Auto) 6.2 Lymph # (Auto) 1.9 [place] # (Auto) 1.1 H Eos # (Auto) 0.0 Baso # (Auto) 0.0 Immature Gran % 0.2 Nucleated RBC % 0.0 Immature Gran # 0.02 Nucleated RBCs # 0.00 Sodium 140 Potassium 4.0 Chloride 109 H Carbon Dioxide 24 Anion Gap 11.0 BUN 11 Creatinine 0.70 GFR Calculation 120 BUN/Creatinine Ratio 15.00 Glucose 91 Calculated Osmolality 277.4 Calcium 8.5 Magnesium 2.2 Total Creatine Kinase 276 D CK-MB (CK-2) 9.0 H D CK and CKMB Interp 3.3 Troponin I 9.980 H 01/24/17 17:59 WBC RBC Hgb Hct MCV MCH MCHC RDW Plt Count MPV Neut % (Auto) Lymph % (Auto) [place] % (Auto) Eos % (Auto) Baso % (Auto) Neut # (Auto) Lymph # (Auto) [place] # (Auto) Eos # (Auto) Baso # (Auto) Immature Gran % Nucleated RBC % Immature Gran # Nucleated RBCs # Sodium Potassium Chloride Carbon Dioxide Anion Gap BUN Creatinine GFR Calculation BUN/Creatinine Ratio Glucose Calculated Osmolality Calcium Magnesium Total Creatine Kinase 393 H CK-MB (CK-2) 18.5 H D CK and CKMB Interp 4.7 Troponin I 12.300 H DS: Provider Consults: 01/23/17 11:32 Consult to Pharmacy [CONS] Routine Reason for Pharmacy Consult: Adjust Meds Renal Funct Discharging clinician: Case Bustillo MD Expected date of discharge: 01/25/17 Shantelle Johnson Bonnie E, NP, personally performed the services described in this documentation, ascribed by Mel Castañeda RN in my presence, and it is both accurate and complete 330 .
== END 2017-01-25 14:06 | disposition home or self-care (01) | DRG 282 ==
LOC: N.TELEN → N.CL 09:58 → OBSVTOIN 10:38 → EDSTATUS 11:00 → N.TELEN 11:18
PROVIDERS: ADMIT Internal Medicine Cardiovascular Disease; ATTEND Internal Medicine Cardiovascular Disease
PROC: CLCCHCL (ICD-10-PCS; 2017-01-23 11:15)

== ENCOUNTER 2019-10-28 09:24 | Inpatient (IN) ==
[2019-10-28 10:46] LABS: Basophils % 0.3 % (0.0-0.8); Eosinophils % 0.1 % (0.00-10.9); Hematocrit 50.6 VOL% (42.0-52.0); Hemoglobin 16.5 GM/DL (14.0-18.0); Immature Granulocytes % 0.3 %; Immature Granulocytes Absolute 0.02 #; Lymphocytes # 1.3 10*3/uL (1.4-4.0); Lymphocytes % 16.8 % (21.2-54.2); Mean Corpuscular HGB Conc 32.6 GM/DL (32-36); Mean Corpuscular Volume 88.6 FL (87-102); Mean Platelet Volume 9.7 FL (9.6-12.0); Monocytes % 5.8 % (1.7-12.7); Neutrophils % 76.7 % (38.7-73.9); Platelet Count 200 T/CUMM (130-400); Red Blood Count 5.71 MC/CUMM (3.8-5.5); Red Cell Distribution Width 18.4 % (9.3-17.3); White Blood Count 7.5 T/CUMM (4-12)
[2019-10-28 11:05] LABS: Albumin 3.1 G/DL (3.4-5.0); Bilirubin,Total 2.8 MG/DL (0.2-1.0); Calcium 8.7 MG/DL (8.5-10.1); Osmolality,Calculated 278.7 MOS/KG (273-304); Total Protein 6.9 G/DL (6.4-8.3)
[2019-10-28] MEDS ORDERED: cloNIDine 0.1 MG TABLET PO STA (11:06)
[2019-10-28] MEDS ORDERED: SODIUM CHLORIDE 0.9% 1,000 ML IV STA (11:16)
[2019-10-28] MEDS ORDERED: LEVOFLOXACIN INJ 750 MG in PREMIX 1 EACH IV STA (11:16)
[2019-10-28] MEDS ORDERED: LEVOFLOXACIN INJ 150 ML IV ONE (11:22)
[2019-10-28] MEDS ORDERED: FUROSEMIDE 40 MG/4 ML VIAL IV STA (12:25)
[2019-10-28] MEDS ORDERED: ACETAMINOPHEN 325 MG TABLET PO PRN (13:01)
[2019-10-28] MEDS ORDERED: POTASSIUM CHLORIDE 20 MEQ TABLET PO PRN (13:01)
[2019-10-28] MEDS ORDERED: MAGNESIUM SULF RIDER 2 GM in PREMIX 1 EACH IV PRN (13:01)
[2019-10-28] MEDS ORDERED: MAGNESIUM SULF RIDER 4 GM in PREMIX 1 EACH IV PRN (13:01)
[2019-10-28] MEDS ORDERED: GLUCAGON 1 MG VIAL IM PRN ×2 (13:01→16:58)
[2019-10-28] MEDS ORDERED: DEXTROSE 10% 25 GM/250 ML BAG IV PRN (13:01)
[2019-10-28] MEDS ORDERED: ONDANSETRON 4 MG/2 ML VIAL IV PRN (13:01)
[2019-10-28] MEDS ORDERED: carvediloL 3.125 MG TABLET PO SCH (13:03)
[2019-10-28 13:13] LABS: Apearance,Urine CLEAR (Clear); Bacteria,Urine Occasional /HPF (Few); Blood, Urine Small mg/dL (Negative); Glucose,Urine (UA) Negative (Negative); Hyaline Casts,Urine 26 /LPF (0-3); Ketones,Urine Negative (Negative); Mucus,Urine Many /LPF (Occasional); Nitrite,Urine Negative (Negative); Protein,Urine 100 MG/DL; RBC,Urine 4 /HPF (0-4); Urine Color Amber (Yellow); Urine Specific Gravity 1.024 (1.001-1.035); WBC,Urine 3 /HPF (0-6)
[2019-10-28 13:14] LABS: Bilirubin,Urine Small mg/dL (Negative)
[2019-10-28] MEDS ORDERED: ALBUTEROL/IPRATROPIUM 3 ML NEB RESP TX PRN (13:35)
[2019-10-28] MEDS: LOSARTAN 25 MG TABLET PO SCH (15:25)
[2019-10-28] MEDS: ASPIRIN CHEW 81 MG TABLET PO SCH (15:25)
[2019-10-28] MEDS: ENOXAPARIN 40 MG/0.4 ML SYRINGE SUBCUT SCH (15:26)
[2019-10-28] MEDS: FUROSEMIDE 40 MG/4 ML VIAL IV SCH (15:26)
[2019-10-28] MEDS ORDERED: INSULIN REGULAR 100 UNIT/ML SUBCUT SCH (16:30)
[2019-10-28] MEDS ORDERED: DEXTROSE 50% 25 GM/50 ML VIAL IV PRN (16:58)
[2019-10-28] MEDS ORDERED: hydrALAZINE 20 MG/1 ML VIAL IV PRN (17:09)
[2019-10-28] MEDS: ALBUTEROL/IPRATROPIUM 3 ML NEB RESP TX SCH (20:09)
[2019-10-28] MEDS: carvediloL 6.25 MG TABLET PO SCH (21:53)
[2019-10-29] MEDS: ALBUTEROL/IPRATROPIUM 3 ML NEB RESP TX SCH ×4 (00:40→19:21)
[2019-10-29 05:35] LABS: Basophils % 0.4 % (0.0-0.8); Eosinophils % 0.3 % (0.00-10.9); Hemoglobin 15.1 GM/DL (14.0-18.0); Immature Granulocytes % 0.1 %; Immature Granulocytes Absolute 0.01 #; Lymphocytes # 1.5 10*3/uL (1.4-4.0); Lymphocytes % 19.9 % (21.2-54.2); Mean Corpuscular HGB Conc 32.8 GM/DL (32-36); Mean Platelet Volume 10.9 FL (9.6-12.0); Neutrophils % 72.3 % (38.7-73.9); Platelet Count 198 T/CUMM (130-400); Red Blood Count 5.29 MC/CUMM (3.8-5.5); Red Cell Distribution Width 17.2 % (9.3-17.3); White Blood Count 7.4 T/CUMM (4-12)
[2019-10-29 06:41] LABS: Free T4 (Free Thyroxine) 1.17 NG/DL (0.76-1.46)
[2019-10-29 06:50] LABS: Calcium 8.1 MG/DL (8.5-10.1); Osmolality,Calculated 280.3 MOS/KG (273-304); Risk Ratio 4.63; VLDL CHOLESTEROL 14.8 MG/DL
[2019-10-29] MEDS: INSULIN REGULAR 100 UNIT/ML SUBCUT SCH ×2 (08:48→16:17)
[2019-10-29] MEDS: carvediloL 6.25 MG TABLET PO SCH ×2 (09:28→20:37)
[2019-10-29] MEDS: ENOXAPARIN 40 MG/0.4 ML SYRINGE SUBCUT SCH (09:28)
[2019-10-29] MEDS: FUROSEMIDE 40 MG/4 ML VIAL IV SCH ×2 (09:28→15:36)
[2019-10-29] MEDS: amLODIPine 10 MG TABLET PO SCH (09:29)
[2019-10-29] MEDS: LOSARTAN 25 MG TABLET PO SCH (09:29)
[2019-10-29] MEDS: ASPIRIN CHEW 81 MG TABLET PO SCH (09:29)
[2019-10-29] MEDS ORDERED: POTASSIUM CHLORIDE RIDER 10 MEQ in PREMIX 1 EACH IV PRN (11:34)
[2019-10-29] MEDS ORDERED: ATORVASTATIN 40 MG TABLET PO SCH (21:00)
[2019-10-29] MEDS ORDERED: ROSUVASTATIN 20 MG TABLET PO SCH (21:00)
[2019-10-30] MEDS: ALBUTEROL/IPRATROPIUM 3 ML NEB RESP TX SCH ×3 (00:07→13:45)
[2019-10-30 05:00] LABS: Basophils % 0.1 % (0.0-0.8); Eosinophils % 0.3 % (0.00-10.9); Hematocrit 44.4 VOL% (42.0-52.0); Hemoglobin 14.7 GM/DL (14.0-18.0); Immature Granulocytes % 0.3 %; Immature Granulocytes Absolute 0.02 #; Lymphocytes # 1.3 10*3/uL (1.4-4.0); Lymphocytes % 17.3 % (21.2-54.2); Mean Corpuscular HGB Conc 33.1 GM/DL (32-36); Mean Corpuscular Volume 87.4 FL (87-102); Mean Platelet Volume 10.5 FL (9.6-12.0); Monocytes % 7.7 % (1.7-12.7); Neutrophils % 74.3 % (38.7-73.9); Platelet Count 191 T/CUMM (130-400); Red Blood Count 5.08 MC/CUMM (3.8-5.5); Red Cell Distribution Width 17.2 % (9.3-17.3); White Blood Count 7.7 T/CUMM (4-12)
[2019-10-30 05:39] LABS: Calcium 8.4 MG/DL (8.5-10.1); Osmolality,Calculated 273.8 MOS/KG (273-304)
[2019-10-30] MEDS ORDERED: diphenhydrAMINE CAP 25 MG CAPSULE PO ONE (07:00)
[2019-10-30] MEDS ORDERED: DIAZEPAM 5 MG TABLET PO ONE (07:00)
[2019-10-30] MEDS: INSULIN REGULAR 100 UNIT/ML SUBCUT SCH (07:21)
[2019-10-30] MEDS ORDERED: POTASSIUM CHLORIDE 20 MEQ TABLET PO ONE (08:00)
[2019-10-30] MEDS: amLODIPine 10 MG TABLET PO SCH (08:54)
[2019-10-30] MEDS: FUROSEMIDE 40 MG/4 ML VIAL IV SCH (08:54)
[2019-10-30] MEDS: LOSARTAN 25 MG TABLET PO SCH (08:54)
[2019-10-30] MEDS: carvediloL 6.25 MG TABLET PO SCH (08:54)
[2019-10-30] MEDS: ASPIRIN CHEW 81 MG TABLET PO SCH (08:54)
[2019-10-30] MEDS: ENOXAPARIN 40 MG/0.4 ML SYRINGE SUBCUT SCH (08:54)
[2019-10-30] MEDS ORDERED: fentaNYL 100 MCG/2 ML VIAL ONE (12:05)
[2019-10-30] MEDS ORDERED: LIDOCAINE 1% 20 ML VIAL ONE (12:05)
[2019-10-30] MEDS ORDERED: MIDAZOLAM 2 MG/2 ML VIAL ONE ×2 (12:05→12:35)
[2019-10-30] MEDS ORDERED: SODIUM CHLORIDE 0.9% 1,000 ML IV SCH (13:30)
[2019-10-30] MEDS ORDERED: FUROSEMIDE 40 MG TABLET PO SCH (16:00)
[2019-10-30 17:39] VITALS: BP 113/74
== END 2019-10-30 18:35 | disposition home or self-care (01) | DRG 286 ==
LOC: N.ED 09:24 → N.EDINP 13:01 → SUPCPDRO 13:01 → N.2E 15:05
PROVIDERS: ADMIT Internal Medicine; ATTEND Internal Medicine